=== PATIENT | male | born 1985 | race Caucasian/White ===

== ENCOUNTER 2018-09-19 08:12 | Emergency (ER) | payer SELFPAY ==
[2018-09-19 08:28] VITALS: BP 153/82
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
== END 2018-09-19 09:31 | disposition home or self-care (01) ==
LOC: UCCORT 08:12
DX: S16.1XXA Strain of muscle, fascia and tendon at neck level, initial encounter (principal); V89.2XXA Person injured in unspecified motor-vehicle accident, traffic, initial encounter; Y92.9 Unspecified place or not applicable; Z88.0 Allergy status to penicillin
CPT/HCPCS: 72125; 99201; G0463

== ENCOUNTER 2019-03-11 18:59 | Emergency (ER) | payer OTHER ==
[2019-03-11 19:23] VITALS: BP 145/83
[2019-03-11] MEDS ORDERED: Gelfoam 100 COMPRESSED* SPONGE TOPICAL ONE (19:57)
[2019-03-11] MEDS ORDERED: Gelfoam 12-7 ADSORBABL SPONGE* 1 EA SPONGE ONE (19:59)
--- NOTE | 2019-03-11 21:05 | UC ---
Laceration HPI - HPI Summary HPI Summary: Pt presents with c/o laceration to left thumb that occurred yesterday when moving a refrigerator. Pt states that he is UTD with tetanus, that he cleaned and bandaged wound yesterday and no concerned because it began to bleed again. - History Of Current Complaint Chief Complaint: UCLaceration Stated Complaint: LACERATION RIGHT THUMB Time Seen by Provider: 03/11/19 19:50 Hx Obtained From: Patient Laceration Location: Finger - left thumb, Mechanism Of Injury: Sharp Trauma Onset/Duration: Sudden Onset Severity: Moderate Pain Intensity: 7 Pain Scale Used: 0-10 Numeric Aggravating Factors: Movement Related History: Dominant Hand Right - Allergies/Home Medications Allergies/Adverse Reactions: Allergies Allergy/AdvReac Type Severity Reaction Status Date / Time Penicillins Allergy Hives Verified 03/11/19 19:23 PMH/Surg Hx/FS Hx/Imm Hx Previously Healthy: Yes - Surgical History Surgical History: Yes Surgery Procedure, Year, and Place: ear tubes - Family History Known Family History: Positive: Cardiac Disease - Social History Occupation: Employed Full-time Lives: With Family Alcohol Use: Occasionally Substance Use Type: None Smoking Status (MU): Never Smoked Tobacco Have You Smoked in the Last Year: No - Immunization History Most Recent Tetanus Shot: 2-3 years ago Vaccination Up to Date: Yes Review of Systems All Other Systems Reviewed And Are Negative: Yes Constitutional: Positive: Negative Skin: Positive: Other - laceration to left thumb Eyes: Positive: Negative ENT: Positive: Negative Respiratory: Positive: Negative Cardiovascular: Positive: Negative Gastrointestinal: Positive: Negative Genitourinary: Positive: Negative Motor: Positive: Negative Neurovascular: Positive: Negative Musculoskeletal: Positive: Myalgia - at laceration site Neurological: Positive: Negative Psychological: Positive: Negative Is Patient Immunocompromised?: No Physical Exam Triage Information Reviewed: Yes Appearance: Well-Appearing Vital Signs: Initial Vital Signs Temp 98.1 F 03/11/19 19:17 Pulse 95 03/11/19 19:17 Resp 16 03/11/19 19:17 BP 145/83 03/11/19 19:17 Pulse Ox 99 03/11/19 19:17 Vital Signs Reviewed: Yes Eye Exam: Normal ENT Exam: Normal ENT: Positive: Hearing grossly normal Dental Exam: Normal Neck exam: Normal Respiratory: Positive: No respiratory distress Musculoskeletal Exam: Normal Musculoskeletal: Positive: Strength Intact, ROM Intact Neurological Exam: Normal, Other - c/o numbing feeling on opposite of laceration Psychological Exam: Normal Skin Exam: Other - laceration left thumb Laceration Repair - Laceration Repair 1 Description: Linear Laceration Size After Repair: Length (cm) - 1, Width (mm) - 1, Depth (mm) - edges of wound were well approximated, not bleeding, nail bed lacerated Modified For Repair: No Cleansing Completed Via Routine Prep: Yes Closure Method: Single Layer - laceration without closure. Gel foam placed on wound and wrapped with koban. Laceration Course/Dx - Differential Dx - Laceration/Wound Differental Diagnoses: Avulsion, Laceration - Diagnosis Provider Diagnosis: Laceration of left thumb with damage to nail Discharge - Sign-Out/Discharge Documenting (check all that apply): Patient Departure All imaging exams completed and their final reports reviewed: No Studies - Discharge Plan Condition: Stable Disposition: HOME Patient Education Materials: Laceration Without Closure (ED) Referrals: Vladimir Tearn MD [Primary Care Provider] - If Needed Additional Instructions: Please follow up with your PCP as needed. Please keep dressing clean and dry at minimum for 48-72 hours. You may change dressing after that or change it earlier if dressing gets soiled. - Billing Disposition and Condition Condition: STABLE Disposition: Home
== END 2019-03-11 20:16 | disposition home or self-care (01) ==
LOC: UCCORT 18:59
DX: S61.011A Laceration without foreign body of right thumb without damage to nail, initial encounter (principal); X58.XXXA Exposure to other specified factors, initial encounter; Y92.9 Unspecified place or not applicable; Z88.0 Allergy status to penicillin
CPT/HCPCS: 12001; 99212; A9270-GY; G0463